=== PATIENT | male | born 1995 | race Caucasian/White ===

== ENCOUNTER 2018-03-18 09:42 | Emergency (ER) | payer SELFPAY ==
[~2018-03-18] VITALS: Ht 182.9 cm; Wt 136.1 kg
[~2018-03-18 09:42] MED LIST: AC325T PO; AMOX500C2 PO; ANTI15DR4 LEFT EAR; RNT150T PO
--- OUTSIDE RECORDS SUMMARY | 2018-03-18 09:55 | XMS REPORT | Continuity of Care Document ---
Author Author [facility] Address Unknown Phone Unavailable Allergies There is no data. Medications There is no data. Problems Date Dx Coded Attending Type Code Diagnosis Diagnosed By 11/12/2014 MODESTA MANZANO APRN V03.89 MENINGOCOCCAL DX Procedures There is no data. Results There is no data. Encounters ACCT No. Visit Date/Time Discharge Status Pt. Type Provider Facility Loc./Unit Complaint [id number] 11/12/2014 10:24:00 11/12/2014 23:59:59 CLS Outpatient MODESTA MANZANO APRN [id number] 07/04/2012 14:26:53 RECURRING
[2018-03-18 10:38] LABS: BASOPHILS % (AUTO) 0 % (0-10); EOSINOPHILS # (AUTO) 0.3 10^3/uL (0.0-0.3); EOSINOPHILS % (AUTO) 3 % (0-10); HEMATOCRIT 47 % (40-54); HEMOGLOBIN 16.2 G/DL (13.3-17.7); LYMPHOCYTES # (AUTO) 1.4 X 10^3 (1.0-4.0); LYMPHOCYTES % (AUTO) 16 % (12-44); MEAN CORPUSCULAR HEMOGLOBIN 29 PG (25-34); MEAN CORPUSCULAR HGB CONC 35 G/DL (32-36); MEAN CORPUSCULAR VOLUME 83 FL (80-99); MEAN PLATELET VOLUME 10.3 FL (7.4-10.4); MONOCYTES # (AUTO) 0.9 X 10^3 (0.0-1.0); MONOCYTES % (AUTO) 11 % (0-12); NEUTROPHILS # (AUTO) 6.1 X 10^3 (1.8-7.8); NEUTROPHILS % (AUTO) 70 % (42-75); PLATELET COUNT 217 10^3/uL (130-400); RED BLOOD COUNT 5.64 10^6/uL (4.35-5.85); RED CELL DISTRIBUTION WIDTH 13.7 % (10.0-14.5); WHITE BLOOD COUNT 8.8 10^3/uL (4.3-11.0)
--- NOTE | 2018-03-18 10:42 | ED GI ---
General Chief Complaint: Abdominal/GI Problems Stated Complaint: NAUSEA/STOMACH PAIN Nursing Triage Note: pt presents to ed with complaints of l upper abdominal pain and nausea x 1 week. reports pain has gotten progressively worse the past 2 days. Sepsis Screen: No Definite Risk Source of Information: Patient Exam Limitations: No Limitations History of Present Illness Date Seen by Provider: Mar 18, 2018 Time Seen by Provider: 10:38 Initial Comments This 22-year-old male presents with a history of left upper quadrant pain with associated nausea and vomiting for the past week progressively worsen last 2 days. Patient has had no hematemesis, melena, black or tarry stools, fever or chills, dysuria or frequency, or associated cough, congestion, headache or stiff neck. Patient denies similar episode in the past. Allergies and Home Medications Allergies Coded Allergies: No Known Drug Allergies (Unverified , 02/14/11) Home Medications Acetaminophen 325 Mg Tablet, 650 MG PO PRN, (Reported) Amoxicillin 500 Mg Capsule, 1 EACH PO TID Prescribed by: CONCEPCION BELL on 09/10/102015 Antipyrine/Benzocaine/Glycerin 1 Drop Drops, 1-2 DROPS LEFT EAR QID TID Prescribed by: CONCEPCION BELL on 09/10/102015 Ranitidine Hcl 150 Mg Tablet, 1 TAB PO DAILY Prescribed by: LENNOX CASTELLANOS on 07/24/10 0603 Patient Home Medication List Home Medication List Reviewed: Yes Review of Systems Constitutional: No chills, No fever EENTM: No Blurred Vision Respiratory: Denies Cough Cardiovascular: Denies Chest Pain Gastrointestinal: Abdominal Pain Genitourinary: Denies Frequency, Denies Flank Pain Musculoskeletal: No back pain, No joint pain Skin: No rash Psychiatric/Neurological: No Symptoms Reported Endocrine: No Symptoms Reported Hematologic/Lymphatic: No Symptoms Reported Past [id number]-Bbqiaa Hx Past Med/Social Hx: Reviewed Nursing Past Med/Soc Hx Patient Social History Alcohol Use: Denies Use Recreational Drug Use: No Smoking Status: Never a Smoker Recent Foreign Travel: No Contact w/Someone Who Travel: No Recent Infectious Disease Expo: No Physical Abuse: No Sexual Abuse: No Mistreated: No Fear: No Past Medical History Surgeries: No Respiratory: No Cardiac: No Neurological: No Genitourinary: No Musculoskeletal: No Endocrine: No HEENT: No Cancer: No Psychosocial: No Nursing Suicide Risk Score: 0 Integumentary: No Blood Disorders: No Physical Exam Vital Signs Vital Signs - First Documented 03/18/18 10:22 Temp 98.5 Pulse 86 Resp 20 B/P (MAP) 151/102 (118) Pulse Ox 98 Capillary Refill : Less Than 3 Seconds Height/Weight/BMI Height: 6'" Weight: 300lbs. oz. [id number]; BMI Method:Stated General Appearance: WD/WN, mild distress HEENT: normal ENT inspection Neck: full range of motion, supple Respiratory: lungs clear, normal breath sounds Cardiovascular: normal peripheral pulses, regular rate, rhythm Gastrointestinal: normal bowel sounds; No distended, No rebound; tenderness ( diffuse in the left upper quadrant.) Extremities: normal range of motion, non-tender, normal inspection, no pedal edema Back: normal inspection, no CVA tenderness, no vertebral tenderness Skin: normal color, warm/dry Progress/Results/Core Measures Results/Orders Lab Results Laboratory Tests Test 03/18/18 10:19 03/18/18 10:50 Range/Units White Blood Count 8.8 4.3-11.0 10^3/uL Red Blood Count 5.64 4.35-5.85 10^6/uL Hemoglobin 16.2 13.3-17.7 G/DL Hematocrit 47 40-54 % Mean Corpuscular Volume 83 80-99 FL Mean Corpuscular Hemoglobin 29 25-34 PG Mean Corpuscular Hemoglobin Concent 35 32-36 G/DL Red Cell Distribution Width 13.7 10.0-14.5 % Platelet Count 217 130-400 10^3/uL Mean Platelet Volume 10.3 7.4-10.4 FL Neutrophils (%) (Auto) 70 42-75 % Lymphocytes (%) (Auto) 16 12-44 % Monocytes (%) (Auto) 11 0-12 % Eosinophils (%) (Auto) 3 0-10 % Basophils (%) (Auto) 0 0-10 % Neutrophils # (Auto) 6.1 1.8-7.8 X 10^3 Lymphocytes # (Auto) 1.4 1.0-4.0 X 10^3 Monocytes # (Auto) 0.9 0.0-1.0 X 10^3 Eosinophils # (Auto) 0.3 0.0-0.3 10^3/uL Basophils # (Auto) 0.0 0.0-0.1 10^3/uL Sodium Level 135 135-145 MMOL/L Potassium Level 4.0 3.6-5.0 MMOL/L Chloride Level 106 98-107 MMOL/L Carbon Dioxide Level 22 21-32 MMOL/L Anion Gap 7 5-14 MMOL/L Blood Urea Nitrogen 8 7-18 MG/DL Creatinine 0.72 0.60-1.30 MG/DL Estimat Glomerular Filtration Rate > 60 BUN/Creatinine Ratio 11 Glucose Level 92 70-105 MG/DL Calcium Level 8.6 8.5-10.1 MG/DL Corrected Calcium 8.6 8.5-10.1 MG/DL Total Bilirubin 0.5 0.1-1.0 MG/DL Aspartate Amino Transf (AST/SGOT) 26 5-34 U/L Alanine Aminotransferase (ALT/SGPT) 36 0-55 U/L Alkaline Phosphatase 86 40-136 U/L Total Protein 7.0 6.4-8.2 GM/DL Albumin 4.0 3.2-4.5 GM/DL Amylase Level 52 25-125 U/L Urine Color YELLOW Urine Clarity SLIGHTLY CLOUDY Urine pH 5 5-9 Urine Specific [place] 1.015 L 1.016-1.022 Urine Protein NEGATIVE NEGATIVE Urine Glucose (UA) NEGATIVE NEGATIVE Urine Ketones NEGATIVE NEGATIVE Urine Nitrite NEGATIVE NEGATIVE Urine Bilirubin NEGATIVE NEGATIVE Urine Urobilinogen NORMAL NORMAL MG/DL Urine Leukocyte Esterase NEGATIVE NEGATIVE Urine RBC (Auto) NEGATIVE NEGATIVE Urine RBC NONE /HPF Urine WBC RARE /HPF Urine Squamous Epithelial Cells 0-2 /HPF Urine Crystals NONE /LPF Urine Bacteria NEGATIVE /HPF Urine Casts NONE /LPF Urine Mucus NEGATIVE /LPF Urine Culture Indicated NO My Orders Orders - GARY KRAUSE MD Comprehensive Metabolic Panel (03/18/18 10:31) Amylase (03/18/18 10:31) Cbc With Automated Diff (03/18/18 10:31) Ct Abdomen/Pelvis W (03/18/18 10:31) Ua Culture If Indicated (03/18/18 10:31) Ns Iv 1000 Ml (Sodium Chloride 0.9%) (03/18/18 10:45) Ondansetron Injection (Zofran Injectio (03/18/18 10:45) Fentanyl Injection (Sublimaze Injection (03/18/18 10:45) Iohexol Injection (Omnipaque 350 Mg/Ml 1 (03/18/18 11:15) Sodium Chloride Flush (Catheter Flush Sy (03/18/18 11:15) Ns (Ivpb) (Sodium Chloride 0.9%) (03/18/18 11:15) Pharmacy Communication (Pharmacy Communi (03/18/18 11:09) Medications Given in ED Current Medications Medications Dose Ordered Sig/Eduard Route Start Time Stop Time Status Last Admin Dose Admin Fentanyl Citrate 50 mcg ONCE ONCE IVP 03/18/18 10:45 03/18/18 10:46 DC 03/18/18 11:03 50 MCG Iohexol 100 ml ONCE ONCE IV 03/18/18 11:15 03/18/18 11:16 DC 03/18/18 11:28 100 ML Ondansetron HCl 4 mg ONCE ONCE IVP 03/18/18 10:45 03/18/18 10:46 DC 03/18/18 11:03 4 MG Sodium Chloride 10 ml NEEDED PRN IV 03/18/18 11:15 03/18/18 11:28 10 ML Sodium Chloride 250 ml ONCE ONCE IV 03/18/18 11:15 03/18/18 11:16 DC 03/18/18 11:28 80 ML Vital Signs/I&O 03/18/18 10:22 Temp 98.5 Pulse 86 Resp 20 B/P (MAP) 151/102 (118) Pulse Ox 98 Blood Pressure Mean: 118 Progress Progress Note : Time: 12:21 Progress Note The patient's laboratory and CT evaluation demonstrated no significant laboratory abnormalities including a normal white paste. CT the abdomen and pelvis however demonstrated stranding around the pancreas suggestive of pancreatitis. I discussed these findings with the patient and family. I asked that he follow- [facility] closely [facility]. I gave him Zofran and Vicodin for nausea and pain respectively. I invited him to return if any further problems or questions. Departure Impression Primary Impression: UPPER ABDOMINAL PAIN, UNSPECIFIED Disposition: 01 HOME, SELF-CARE Condition: Improved Departure-Patient Inst. Decision time for Depature: 12:24 Referrals: [facility] (PCP/Family) Primary Care Physician Patient Instructions: Acute Abdomen (Belly Pain), Adult (DC) Add. Discharge Instructions: Follow-up with [facility]. Hydrocodone and Zofran as prescribed. Return if any problems. All discharge instructions reviewed with patient and/or family. Voiced understanding. GARY KRAUSE MD Mar 18, 2018 10:42
[2018-03-18] MEDS ORDERED: NS IV 1000 ML 1,000 ML IV SCH (10:45)
[2018-03-18] MEDS ORDERED: ONDANSETRON 4 MG/2 ML (SDV) Z0FRAN IVP ONE (10:45)
[2018-03-18] MEDS ORDERED: fentaNYL INJECTION 100 MCG/2 ML AMP IVP ONE (10:45)
[2018-03-18 10:49] LABS: ALANINE AMINOTRANSFERASE 36 U/L (0-55); ALKALINE PHOSPHATASE 86 U/L (40-136); AMYLASE 52 U/L (25-125); BILIRUBIN,TOTAL 0.5 MG/DL (0.1-1.0); BUN/CREATININE RATIO 11; CALCIUM 8.6 MG/DL (8.5-10.1); CARBON DIOXIDE 22 MMOL/L (21-32); CHLORIDE 106 MMOL/L (98-107); CREATININE SERUM 0.72 MG/DL (0.60-1.30); GFR ESTIMATED > 60; GLUCOSE 92 MG/DL (70-105); SODIUM 135 MMOL/L (135-145)
[2018-03-18 11:01] LABS: BILIRUBIN,URINE NEGATIVE (NEGATIVE); CLARITY,URINE SLIGHTLY CLOUDY; COLOR,URINE YELLOW; GLUCOSE, URINE (UA) NEGATIVE (NEGATIVE); KETONES,URINE NEGATIVE (NEGATIVE); LEUKOCYTE ESTERASE ,URINE NEGATIVE (NEGATIVE); NITRITE,URINE NEGATIVE (NEGATIVE); PH,URINE 5 (5-9); PROTEIN,URINE NEGATIVE (NEGATIVE); UROBILINOGEN,URINE NORMAL (NORMAL)
[2018-03-18] MEDS ORDERED: NS 250 ML (IVPB) BAG IV ONE (11:15)
[2018-03-18] MEDS ORDERED: IOHEXOL 350 MG/ML 100 ML (OMNIPAQUE 350) VIAL IV ONE (11:15)
[2018-03-18] MEDS ORDERED: CATHETER FLUSH 10 ML SYR IV PRN (11:15)
[2018-03-18 11:26] LABS: BACTERIA,URINE NEGATIVE /HPF; SQUAMOUS EPITHELIAL CELL,UR 0-2 /HPF; WBC,URINE RARE /HPF
--- NOTE | 2018-03-18 11:53 | Diagnostic Imaging Report ---
PROCEDURE: CT abdomen and pelvis with contrast. TECHNIQUE: Multiple contiguous axial images were obtained through the abdomen and pelvis after administration of intravenous contrast. INDICATION: Stomach pain and nausea for one week COMPARISON: None FINDINGS: Lung bases are clear. The heart is normal in size. There is no pericardial effusion. No focal liver lesions are seen. The spleen appears normal. There is questionable fat stranding adjacent to the pancreas. No fluid collections are seen. The adrenal glands are unremarkable. The kidneys appear normal. The bowel loops are nondistended without evidence of obstruction. The appendix is normal. There is no free fluid or free air seen. No acute osseous abnormality is seen. IMPRESSION: 1. Questionable fat stranding adjacent to the pancreas. Please correlate with lipase to exclude pancreatitis. Otherwise no acute abdominopelvic abnormality is seen. Dictated by: Dictated on workstation # [id number]
[2018-03-18 12:35] VITALS: BP 129/87
== END 2018-03-18 12:34 | disposition home or self-care (01) ==
LOC: EDUNIT# 09:42 → ER 09:43
DX: R10.12 Left upper quadrant pain (principal)
CPT/HCPCS: 36415; 74177; 80053; 81000; 82150; 85025